=== PATIENT | female | born 1960 | race Caucasian/White ===

== ENCOUNTER → 2024-01-30 07:04 | Day surgery (SDC) | payer OTHER, SELFPAY ==
[2024-01-26 13:01] VITALS: BMI 37.3
--- NOTE | 2024-01-30 10:49 | ITS.CL.CARDI ---
[facility] - Cardioversion
Cardioversion
Procedure Report:
Date of Procedure: 01/30/24
Procedure: Cardioversion.
Indication: Symptomatic atrial fibrillation.
Performing Physician: Simona Alvarez MD
Technique: The patient was brought to the holding area. Signed informed consent was obtained. A time out was called and performed. The patient was sedated by a member of the anesthesia service. Anticoagulation status was reviewed and was
appropriate. R-2 pads were placed anteriorly and posteriorly. YAAKOV was performed and didn't show evidence of LA/SENAIT/RA or RAA thrombus. Sequentialsynchronized biphasic shocks were delivered at 200J. 300J and 360J. The final shock resulted in 1-2
beats of NSR but with quick return to atrial fibrillation. restored normal sinus rhythm without significant bradycardia. There were no complications.
Conclusion: Failled cardioversion attempt to restore NSR. Patient remains in rate controlled atrial fibrillation.
Recommendation: Routine post cardioversion care. Continue terminal system operator anticoagulation.
== END ==
LOC: CATH 07:04
PROVIDERS: ATTENDING PHYSICIAN Internal Medicine Cardiovascular Disease; FAMILY PHYSICIAN Internal Medicine
DX: I48.19 Other persistent atrial fibrillation (principal); I08.0 Rheumatic disorders of both mitral and aortic valves; I10 Essential (primary) hypertension; R06.09 Other forms of dyspnea; G47.33 Obstructive sleep apnea (adult) (pediatric); E66.9 Obesity, unspecified; Z68.37 Body mass index [BMI] 37.0-37.9, adult; Z79.01 Long term (current) use of anticoagulants
CPT/HCPCS: 93312; 93320; 93325; 92960; 93005

== ENCOUNTER → 2024-03-05 10:17 | Outpatient (REF) | payer OTHER, SELFPAY | LOC: CATH 10:17 | PROVIDERS: ATTENDING PHYSICIAN Internal Medicine Cardiovascular Disease; FAMILY PHYSICIAN Internal Medicine; OTHER PHYSICIAN Nurse Practitioner | DX: I48.19 Other persistent atrial fibrillation (principal) | CPT/HCPCS: 93225; 93226 ==

== ENCOUNTER 2024-03-14 09:35 | Day surgery (SDC) | payer OTHER, SELFPAY | END 2024-03-14 11:20 | disposition home or self-care (01) | LOC: CATH 09:35 | PROVIDERS: ATTENDING PHYSICIAN Internal Medicine Cardiovascular Disease; FAMILY PHYSICIAN Internal Medicine | DX: I48.19 Other persistent atrial fibrillation (principal); I10 Essential (primary) hypertension; R06.09 Other forms of dyspnea; R53.83 Other fatigue; E66.9 Obesity, unspecified; Z68.35 Body mass index [BMI] 35.0-35.9, adult; Z79.01 Long term (current) use of anticoagulants | CPT/HCPCS: 92960 ==

== ENCOUNTER 2024-08-17 09:28 | Day surgery (SDC) | payer OTHER, SELFPAY | END 2024-08-17 11:26 | disposition home or self-care (01) | LOC: CATH 09:28 | PROVIDERS: ATTENDING PHYSICIAN Internal Medicine Cardiovascular Disease; FAMILY PHYSICIAN Internal Medicine; OTHER PHYSICIAN Internal Medicine Cardiovascular Disease | DX: I48.19 Other persistent atrial fibrillation (principal); E66.9 Obesity, unspecified; Z68.35 Body mass index [BMI] 35.0-35.9, adult; Z79.01 Long term (current) use of anticoagulants | CPT/HCPCS: 92960; 93005 ==

== ENCOUNTER → 2024-09-27 14:44 | Outpatient (REF) | payer OTHER, SELFPAY ==
[2024-09-27 16:24] LABS: % Basophils 0.6 % (0-2); % Eosinophils 0.3 % (0-6); % Immature Granulocytes 0.1 % (0-0.5); % Lymphocytes 22.9 % (20.5-51.1); % Monocytes 9.3 % (1.7-9.3); % Neutrophils 66.8 % (42.2-75.2); Absolute Lymphocytes 1.6 10^3/uL (1.2-3.4); Absolute Monocytes 0.7 10^3/uL (0.1-0.6); Absolute Neutrophils 4.8 10^3/uL (1.4-6.5); Hematocrit 41.2 % (37.0-47.0); Hemoglobin 13.8 g/dL (12.0-16.0); Mean Corp Hgb Conc. 33.5 g/dL (33.0-37.0); Mean Corpuscular Hgb 27.7 pg (27.0-31.0); Mean Corpuscular Volume 82.6 fL (81.0-99.0); Nucleated Red Blood Cells % 0 %; Platelet Count 350 10^3/uL (130-400); Red Blood Cell Count 4.99 10^6/uL (4.20-5.40); Red Cell Dist. Width 13.5 % (11.5-14.5); White Blood Cell Count 7.1 10^3/uL (4.8-10.8)
[2024-09-27 16:39] LABS: ALT (SGPT) 68 U/L (0-35); AST (SGOT) 154 U/L (14-36); Albumin 4.2 g/dl (3.5-5.0); Alkaline Phosphatase 273 U/L (38-126); Blood Urea Nitrogen 20 mg/dl (7-17); Calcium 11.1 mg/dl (8.4-10.2); Carbon Dioxide 26 mmol/L (22-30); Chloride 102 mmol/L (98-107); Glucose 94 mg/dl (70-99); Potassium 4.4 mmol/L (3.5-5.1); Sodium 143 mmol/L (135-145); Total Bilirubin 1.3 mg/dl (0.2-1.3); Total Protein 7.6 g/dl (6.3-8.2); eGFR > 60.00
== END ==
LOC: REG 14:44
PROVIDERS: ATTENDING PHYSICIAN Internal Medicine Cardiovascular Disease; FAMILY PHYSICIAN Internal Medicine; REFERRING PHYSICIAN Specialist
DX: R19.7 Diarrhea, unspecified (principal); I10 Essential (primary) hypertension
CPT/HCPCS: 36415; 80053; 85025

== ENCOUNTER 2024-10-09 17:22 | Emergency (ER) | payer OTHER, SELFPAY ==
[2024-10-09 17:25] VITALS: BP 113/81
--- NOTE | 2024-10-09 18:30 | ED.GENMED ---
History of Present Illness
General
Chief Complaint: Musculo-Skeletal Complaint
Source: patient and spouse
Exam Limitations: none
Time Seen by Provider: 10/09/24 18:04
History of Present Illness
History of Present Illness:
This is a 63 year old female that comes in with c/o right leg pain. States that she was trying to get up when she was in the bathroom and she was unable. States that she did a lot of twisting and then over the past 2 days she developed right leg
pain. States that she went to see the PCP and he wanted her to come to the ER for CT of the leg. Patient was in [place] recently and had 2 ablations. States that she has also had diarrhea for the past 2 weeks. Denies any fever, chills, chest pain,
SOB, abd pain, nausea, vomiting, headache, dizziness, urinary burning.
Past History
Past History
ED Past Medical History: Arrthythmia (Atrial fib), HTN, Hypothyroidism and Other (Obesity, arthritis)
ED Past Surgical History: Cardiac (Ablation X 2 at [place]), and Orthopedic (Left arm surgery, Bunionectomy right, Left hip replacement)
Social History
Tobacco: Non-smoker
Alcohol: None
Personal:
Living: with family
Review of Systems
Review of Systems
All Other Systems: ROS reviewed and negative except as documented in HPI and ROS
Constitutional: Reports no symptoms
EENT: Reports no symptoms
Respiratory: Reports no symptoms; Denies cough or trouble breathing
Cardiac: Reports no symptoms; Denies chest pain
ABD/GI: Reports diarrhea; Denies vomiting
: Reports no symptoms; Denies dysuria, frequency or urgency
Musculoskeletal: Reports other (Right leg pain)
Skin: Reports no symptoms
Neurological: Reports no symptoms; Denies dizzy or headache
Psychiatric: Reports no symptoms
Phy Exam
General Physical Exam
General Presentation: no apparent distress
General age: appears older than age
General Skin: warm and dry
General Habitus: normal
General Mental: alert
General Hydration: dry mucous membranes
ENT Exam
ENT Exam: TM's normal, pharynx normal and neck supple
Eye Exam
Eye Exam: EOMI
Cardiovascular Exam
Cardiovascular Exam: regular rate/rhythm and normal peripheral pulses
Pulmonary Exam
Pulmonary Exam: lungs clear, no respiratory distress, no rales, chest non tender, no crackles, no rhonchi, no wheezing and no cough
Gastrointestinal Exam
Gastrointestinal Exam: normal bowel sounds, non tender, soft, no organomegaly, no pulsatile mass, non distended and other (Obses)
Musculoskeletal Exam
Musculoskeletal Exam: no edema and other (Right leg discomfort with slight flexion of the right knee on the medial aspect of the knee and behind the knee, Along with right groin pain on the medial aspect)
Skin Exam
Skin Exam: normal color, warm/dry, no rash and no petechia
Psychiatric Exam
Psychiatric Exam: normal mood/affect
Course
Orders/Labs/Results
Orders:
Orders
10/09/24 18:27
CT Lower Ext W/iv Cont Rt Urgent
Comment:
Reason For Exam: Righth leg pain
US Periph Venous LOWER Ext RT Urgent
Comment:
Reason For Exam: Pain medial knee and behind. Leg pain
10/09/24 18:30
0.9% Sodium Chloride 500 ml [Nss] 500 ml IV BOLUS
10/09/24 18:45
Complete Blood Count/With Diff Urgent
Comprehensive Metabolic Panel Urgent
Free T4 Urgent
TSH Reflex To Free T4 Urgent
Abnormal Lab Results
10/09/24
18:45
WBC 11.3 H 10^3/uL
(4.8-10.8)
MCHC 32.5 L g/dL
(33.0-37.0)
MPV 10.5 H fL
(7.4-10.4)
Abs Immat Gran (auto) 0.1 H 10^3/uL
(0-0.05)
Absolute Neuts (auto) 8.4 H 10^3/uL
(1.4-6.5)
Absolute Monos (auto) 1.2 H 10^3/uL
(0.1-0.6)
Lymphocytes % 13.8 L %
(20.5-51.1)
Monocytes % 10.9 H %
(1.7-9.3)
BUN 22 H mg/dl
(7-17)
Creatinine 0.5 L mg/dL
(0.6-1.0)
Glucose 117 H mg/dl
(70-99)
Calcium 10.9 H mg/dl
(8.4-10.2)
Total Bilirubin 1.7 H mg/dl
(0.2-1.3)
AST 183 H U/L
(14-36)
ALT 95 H U/L
(0-35)
Alkaline Phosphatase 273 H U/L
(38-126)
TSH (Reflex) < 0.02 L uIU/ml
(0.47-4.68)
Free T4 5.50 H ng/dl
(0.78-2.19)
10/09/24 18:45
10/09/24 18:45
WBC slightly elevated, Dehydration. Hyperglycemia, Hypercalcemia, Total lola elevation. AST/ALT elevation Alk phos elevation (patient state that her liver enzymes are normally elevated as this is a family thing), TSH very low and Free T4 elevated.
Vital Signs
Initial and Last Documented VS:
Initial Vital Signs
Temp Pulse Resp BP Pulse Ox
98 F 87 20 113/81 95
10/09/24 17:25 10/09/24 17:25 10/09/24 17:25 10/09/24 17:25 10/09/24 17:25
Last Documented Vital Signs
Temp Pulse Resp BP Pulse Ox
98 F 96 18 143/62 94
10/09/24 17:25 10/09/24 19:52 10/09/24 19:52 10/09/24 19:52 10/09/24 19:52
MDM/Problems Addressed
Differential Diagnosis Includes:
Musculoskeletal pain, Pulled muscle groin, DVT, Bakers cyst
MDM/Problems Addressed:
This is a 63 year old female that comes in with c/o right leg pain. States that she was in the bathroom and was unable to get back up and did a lot of twisting. States that she started 2 days ago with right leg pain. PCP wanted her evaluated for a
Deep hematoma as patient is on Eliquis. PCP also states that the patient TSH was also elevated recently to 7.7 and was just started on medication.
Will get labs, US and CT right leg. Will give IV fluids
Back into see patient and family. Explained that her liver enzymes are elevated and that her TSH is very low. Patient states that her liver enzymes are normally elevated as this is a problem that her and her sisters have. Statest hat she was to take
medication tonight for her Thyroid. Encouraged patient to hold off on this as know her TSH is very low. This means that it is over active. Patent will call the PCP tomorrow.
Back into see patient. Explained that the CT shows that the soft tissue and muscles are unremarkable. There is no mass or fluid collection. There is a right knee bakers cyst and a joint effusion. Most likely a hemarthrosis. Explained that this will
take time for the body to absorb as patient is on Eliquis. Will have patient use an jaun to help with any discomfort. Follow up with the family doctor for her Thyroid levels. Patient is going to call PCP in the morning. Will discharge home.
Chronic conditions affecting care:
Recent ablation X 2
Acute Exacerbation and/or Progression of Chronic Illness:
NA
*Radiology
Radiology exam reviewed: radiology read reviewed (US-No sonographic evidence for right lower extremity deep venous thrombosis. CT=Moderate hemarthrosis of the right knee)
*Pulse Oximetry
Patient hypoxic: no
*EKG
Interpreted by ED Provider?: NA
Rate: EKG- N/A
*Hearing Consultant Interpretation
Rate: Hearing Consultant- N/A
*Critical Care Note
Total Time (30-74mins, 75-104mins- exclusive of procedures): Not Applicable
ED Attending Note
-
Portions of this chart may have been created with voice recognition software.� Occasional wrong word or��sound alike� substitutions may have occurred due to the inherent limitations of voice recognition software.
Discharge Plan
Departure
Patient Disposition: Home (Routine Discharge)
Date of Disposition: 10/09/24
Time of Disposition: 21:31
Patient with high blood pressure during this ER visit?: Yes
Condition: Good
Covid-19: Not Applicable
Discharge Problem:
Caruso's cyst of knee, Hemarthrosis of knee, right
Instructions: Caruso's Cyst (DC), Hemarthrosis (DC)
Prescriptions:
No Action
furosemide 20 mg Tablet
20 mg PO PRN PRN (Reason: Fluid retention)
Eliquis 5 mg Tablet
5 mg PO BID
flecainide 100 mg Tablet
100 mg PO BID
metoprolol succinate 50 mg Tablet Extended Release 24 Hr
50 mg PO BID
Referrals:
Michael Gómez MD [Family Provider] - Follow up in 2-3 days
Activity Restrictions/Additional Instructions:
As discussed, your blood work shows slight Dehydration. Please increase your water intake to 8-8oz glasses daily. Your Liver enzymes are elevated and slightly increased from prior labs. Your Thyroid TSH is very low and your Free T4 remains slightly
elevated. Please follow up with the family doctor for further evaluation. Your Ultrasound shows that you have a Bakers cyst behind the knee and that there is a joint effusion. You have been given a jaun to wrap the right knee. This will take time
for this effusion to be reabsorbed. Elevate your leg when sitting around. IF YOU HAVE SWELLING OF THE KNEE YOU WILL NEED TO SEE THE CHIEF ENGINEER'S HELPER FOR FURTHER EVALUATION. IF YOU HAVE ANY OTHER CONCERNS PLEASE RETURN TO THE EMERGENCY ROOM.
Interventions
Interventions:
*Risk Screen - Suicide Last Done: 10/09/24 17:25
*General Assessment Last Done: 10/09/24 17:25
*Neglect/Abuse Screening Last Done: 10/09/24 17:25
ED-Musculoskeletal Assessment Last Done: 10/09/24 18:41
Discharge Date and Time
Print Language: SLOVENIAN
[2024-10-09 18:39] VITALS: BMI 31.1
[2024-10-09 18:41] VITALS: BP 142/62
[2024-10-09 18:54] LABS: % Basophils 0.3 % (0-2); % Eosinophils 0.3 % (0-6); % Immature Granulocytes 0.4 % (0-0.5); % Lymphocytes 13.8 % (20.5-51.1); % Monocytes 10.9 % (1.7-9.3); % Neutrophils 74.3 % (42.2-75.2); Absolute Immature Granulocytes 0.1 10^3/uL (0-0.05); Absolute Lymphocytes 1.6 10^3/uL (1.2-3.4); Absolute Monocytes 1.2 10^3/uL (0.1-0.6); Absolute Neutrophils 8.4 10^3/uL (1.4-6.5); Mean Corp Hgb Conc. 32.5 g/dL (33.0-37.0); Mean Corpuscular Hgb 27.3 pg (27.0-31.0); Mean Corpuscular Volume 83.9 fL (81.0-99.0); Mean Platelet Volume 10.5 fL (7.4-10.4); Nucleated Red Blood Cells % 0 %; Platelet Count 270 10^3/uL (130-400); Red Blood Cell Count 4.77 10^6/uL (4.20-5.40); Red Cell Dist. Width 13.2 % (11.5-14.5); White Blood Cell Count 11.3 10^3/uL (4.8-10.8)
[2024-10-09] MEDS: NSS 500 IV (18:56)
[2024-10-09 19:05] LABS: ALT (SGPT) 95 U/L (0-35); AST (SGOT) 183 U/L (14-36); Albumin 3.6 g/dl (3.5-5.0); Alkaline Phosphatase 273 U/L (38-126); Blood Urea Nitrogen 22 mg/dl (7-17); Calcium 10.9 mg/dl (8.4-10.2); Carbon Dioxide 26 mmol/L (22-30); Chloride 101 mmol/L (98-107); Estimated Creatinine Clearance 122 ml/min; Glucose 117 mg/dl (70-99); Potassium 3.7 mmol/L (3.5-5.1); Sodium 140 mmol/L (135-145); Total Bilirubin 1.7 mg/dl (0.2-1.3); Total Protein 6.8 g/dl (6.3-8.2); eGFR > 60.00
[2024-10-09 19:35] LABS: TSH Reflex To Free T4 < 0.02 uIU/ml (0.47-4.68)
[2024-10-09 19:52] VITALS: BP 143/62
== END 2024-10-09 22:32 | disposition home or self-care (01) ==
LOC: EMR 17:22
PROVIDERS: Clinical Nurse Specialist Family Health; EMERGENCY PHYSICIAN Emergency Medicine; FAMILY PHYSICIAN Internal Medicine
DX: M71.21 Synovial cyst of popliteal space [Baker], right knee (principal); M25.061 Hemarthrosis, right knee; I48.91 Unspecified atrial fibrillation; I10 Essential (primary) hypertension; E03.9 Hypothyroidism, unspecified; E66.9 Obesity, unspecified; E83.52 Hypercalcemia; E86.0 Dehydration; Z79.01 Long term (current) use of anticoagulants; Z96.642 Presence of left artificial hip joint
CPT/HCPCS: 99284; 96360; 96361; 73701; 80053; 84439; 84443; 85025; 93971; Q9967